=== PATIENT | female | born 1985 | race Caucasian/White ===

== ENCOUNTER → 2022-08-15 11:05 | Outpatient (BNVA) | payer MEDICARE, MEDICAID, SELFPAY | PROVIDERS: PCP Family Medicine; Visit Provider Registered Nurse | DX: Z79.899 Other long term (current) drug therapy (principal) | CPT/HCPCS: 80053; 80061; 82306; 82607; 83036; 83540; 84443; 85025 ==

== ENCOUNTER 2022-09-19 20:00 | Outpatient (CLI) | payer MEDICARE, MEDICAID, SELFPAY ==
[2022-08-23 14:34] VITALS: BP 126/87; BMI 36.7
== END 2022-09-19 20:01 | disposition home or self-care (01) ==
PROVIDERS: PCP Family Medicine; Visit Provider Registered Nurse
DX: G47.10 Hypersomnia, unspecified (principal); G47.33 Obstructive sleep apnea (adult) (pediatric); G47.36 Sleep related hypoventilation in conditions classified elsewhere
CPT/HCPCS: 95810

== ENCOUNTER 2023-04-22 12:36 | Oncology outpatient (recurring) (ONCR) | payer MEDICARE, MEDICAID, SELFPAY ==
[2022-08-23 14:34] VITALS: BP 126/87; BMI 36.7
[2023-04-22 14:09] LABS: Basophils # 0.1 10^3/uL (0.0-0.1); Basophils % 0.9 %; Eosinophils # 0.2 10^3/uL (0.0-0.8); Eosinophils % 2.1 %; Hematocrit 50.7 % (36-47); Lymphocytes # 3.9 10^3/uL (0.8-4.8); Lymphocytes % 34.9 %; Mean Corpuscular HGB Conc 32.9 g/dL (30-55); Mean Corpuscular Hemoglobin 27.4 pg (27-33); Mean Corpuscular Volume 83.3 fl (85-98); Mean Platelet Volume 11.3 fL (7.4-10.4); Monocytes # 0.7 10^3/uL (0.2-0.9); Neutrophils # 6.24 10^3/uL (1.8-7.7); Neutrophils % 55.6 %; Nucleated Red Blood Cells % 0 %; Platelet Count 214 10^3/cmm (157-399); Red Blood Count 6.09 10^6/uL (3.85-5.65); White Blood Count 11.23 10^3/uL (3.29-11.43)
[2023-04-22 14:23] LABS: Erythrocyte Sedimentation Rate 7 mm/hr (0-15); LAB Peripheral Smear Sent for Review
[2023-04-22 14:32] LABS: Alanine Aminotransferase 17 U/L (0-33); Alkaline Phosphatase 108 U/L (35-105); Anion Gap 15.1 (5-19); Aspartate Amino Transferase 15 U/L (0-32); Blood Urea Nitrogen 7 mg/dL (6-20); C Reactive Protein 8.3 mg/L (0.0-4.9); Calcium 9.5 mg/dL (8.5-10.5); Carbon Dioxide 25 mmol/L (22-29); Chloride 102 mmol/L (98-107); Creatinine Clr Calc Pharmacy 193.2788; Ferritin 306 ng/mL (15-150); Globulin 2.7 g/dL (1.3-4.6); Glomerular Filtration Rate 140.4 mL/min (90-130); Glucose 106 mg/dL (65-115); Iron 102 ug/dL (37-145); Osmolality Calculated 284 mOsm/kg (285-295); Percent Saturation 28.6 % (20-50); Potassium 4.1 mmol/L (3.5-5.1); Sodium 138 mmol/L (136-145); Total Bilirubin 0.4 mg/dL (0.15-1.2); Total Iron Binding Capacity 356 mcg/dl; Total Protein 6.7 g/dL (6.6-8.7); Unsaturated Iron Binding 254 ug/dL (112-347)
[2023-04-22 14:46] LABS: Vitamin B12 496 pg/mL (232-1245)
[2023-04-22 14:55] LABS: Lactate Dehydrogenase 132 U/L (135-214)
[2023-04-23 13:55] LABS: Leukemia Profile (BBPL) See Report
[2023-05-03 13:04] LABS: CALR Exon 9 Mutation NOT DETECTED (NOT DETECTED); CSF3R Exon 14/17 Mutation NOT DETECTED (NOT DETECTED); JAK2 Exon 12 Mutation NOT DETECTED (NOT DETECTED); JAK2 V617 Block Specimen ID NG; JAK2 V617 Clinical Indication NG; JAK2 V617 Mutation NOT DETECTED (NOT DETECTED); JAK2 V617 Specimen Source NG; MPL Exon 12 Mutation NOT DETECTED (NOT DETECTED)
== END 2023-04-25 23:59 | disposition home or self-care (01) ==
PROVIDERS: Internal Medicine Medical Oncology; PCP Family Medicine; Visit Provider Family Medicine
DX: D75.1 Secondary polycythemia (principal); R53.83 Other fatigue; R19.7 Diarrhea, unspecified; D72.89 Other specified disorders of white blood cells; E61.1 Iron deficiency; F17.210 Nicotine dependence, cigarettes, uncomplicated; Z79.899 Other long term (current) drug therapy; Z53.9 Procedure and treatment not carried out, unspecified reason
CPT/HCPCS: 36415; 80053; 81270; 81279; 81339; 81479; 82607; 82668; 82728; 83540; 83550; 83615; 85025; 85651; 86140; 86900; 88184; 88185; 99205

== ENCOUNTER → 2023-08-16 09:43 | Outpatient (BNVA) | payer MEDICAID, MEDICARE, SELFPAY ==
[2022-08-23 14:34] VITALS: BP 126/87; BMI 36.7
== END ==
PROVIDERS: PCP Family Medicine; Visit Provider Nurse Practitioner Family
DX: L30.9 Dermatitis, unspecified (principal); L57.8 Other skin changes due to chronic exposure to nonionizing radiation; L81.4 Other melanin hyperpigmentation; L81.0 Postinflammatory hyperpigmentation
CPT/HCPCS: 11104; 99203

== ENCOUNTER 2023-08-19 13:08 | Oncology outpatient (recurring) (ONCR) | payer MEDICARE, MEDICAID, SELFPAY ==
[2022-08-23 14:34] VITALS: BP 126/87; BMI 36.7
[2023-08-19 13:28] LABS: Basophils # 0.1 10^3/uL (0.0-0.1); Basophils % 0.7 %; Eosinophils # 0.2 10^3/uL (0.0-0.8); Eosinophils % 1.2 %; Hematocrit 46.4 % (36-47); Lymphocytes # 3.9 10^3/uL (0.8-4.8); Lymphocytes % 28.1 %; Mean Corpuscular HGB Conc 34.3 g/dL (30-55); Mean Corpuscular Hemoglobin 29.8 pg (27-33); Mean Corpuscular Volume 86.9 fl (85-98); Mean Platelet Volume 11.2 fL (7.4-10.4); Monocytes # 0.7 10^3/uL (0.2-0.9); Monocytes % 4.7 %; Neutrophils % 64.8 %; Nucleated Red Blood Cells % 0 %; Platelet Count 251 10^3/cmm (157-399); Red Blood Count 5.34 10^6/uL (3.85-5.65); Red Cell Distribution Width 14.2 % (12.1-15.1); White Blood Count 13.75 10^3/uL (3.29-11.43)
[2023-08-19 13:48] LABS: Alanine Aminotransferase 11 U/L (0-33); Albumin Level 4.2 g/dL (3.5-5.2); Alkaline Phosphatase 107 U/L (35-105); Anion Gap 15.3 (5-19); Aspartate Amino Transferase 11 U/L (0-32); Blood Urea Nitrogen 8 mg/dL (6-20); Calcium 9.5 mg/dL (8.5-10.5); Carbon Dioxide 23 mmol/L (22-29); Chloride 108 mmol/L (98-107); Ferritin 238 ng/mL (15-150); Glomerular Filtration Rate 140.4 mL/min (90-130); Glucose 113 mg/dL (65-115); Iron 96 ug/dL (37-145); Osmolality Calculated 293 mOsm/kg (285-295); Percent Saturation 27.1 % (20-50); Potassium 4.3 mmol/L (3.5-5.1); Sodium 142 mmol/L (136-145); Total Bilirubin 0.5 mg/dL (0.15-1.2); Total Iron Binding Capacity 354 mcg/dl; Total Protein 7.2 g/dL (6.6-8.7); Unsaturated Iron Binding 258 ug/dL (112-347)
== END 2023-08-25 23:59 | disposition home or self-care (01) ==
PROVIDERS: Internal Medicine Medical Oncology; PCP Family Medicine; Visit Provider Family Medicine
DX: D72.89 Other specified disorders of white blood cells (principal); F17.210 Nicotine dependence, cigarettes, uncomplicated
CPT/HCPCS: 36415; 80053; 82728; 83540; 83550; 85025; 99213

== ENCOUNTER → 2023-08-26 11:16 | Outpatient (BNVA) | payer MEDICARE, MEDICAID, SELFPAY ==
[2022-08-23 14:34] VITALS: BP 126/87; BMI 36.7
== END ==
PROVIDERS: PCP Family Medicine; Visit Provider Nurse Practitioner Family
DX: L02.426 Furuncle of left lower limb (principal); L02.221 Furuncle of abdominal wall; L02.425 Furuncle of right lower limb; D23.61 Other benign neoplasm of skin of right upper limb, including shoulder; Z48.02 Encounter for removal of sutures
CPT/HCPCS: 99213

== ENCOUNTER → 2023-09-05 16:33 | Outpatient (BNVA) | payer MEDICARE, OTHER, SELFPAY ==
[2022-08-23 14:34] VITALS: BP 126/87; BMI 36.7
== END ==
PROVIDERS: PCP Family Medicine; Visit Provider Psychiatry & Neurology Psychiatry
DX: Z79.899 Other long term (current) drug therapy (principal)
CPT/HCPCS: 80061; 83036

== ENCOUNTER → 2023-09-17 14:02 | Outpatient (BNVA) | payer MEDICARE, SELFPAY ==
[2023-09-12 11:56] VITALS: BP 129/88; BMI 33.3
== END ==
PROVIDERS: PCP Family Medicine; Visit Provider Nurse Practitioner Family
DX: L02.32 Furuncle of buttock (principal); L81.0 Postinflammatory hyperpigmentation
CPT/HCPCS: 99214

== ENCOUNTER → 2023-12-26 14:03 | Outpatient (BNVA) | payer MEDICARE, MEDICAID, SELFPAY ==
[2023-09-12 11:56] VITALS: BP 129/88; BMI 33.3
== END ==
PROVIDERS: PCP Family Medicine; Visit Provider Nurse Practitioner Family
DX: L02.32 Furuncle of buttock (principal); L81.0 Postinflammatory hyperpigmentation; D23.61 Other benign neoplasm of skin of right upper limb, including shoulder; L30.9 Dermatitis, unspecified; L57.8 Other skin changes due to chronic exposure to nonionizing radiation; L81.4 Other melanin hyperpigmentation; B07.8 Other viral warts; F17.200 Nicotine dependence, unspecified, uncomplicated
CPT/HCPCS: 11104; 17110; 99213

== ENCOUNTER → 2024-07-16 15:42 | Outpatient (BNVA) | payer MEDICARE, OTHER, SELFPAY ==
[2023-09-12 11:56] VITALS: BP 129/88; BMI 33.3
== END ==
PROVIDERS: PCP Family Medicine; Visit Provider Psychiatry & Neurology Psychiatry
DX: Z79.899 Other long term (current) drug therapy (principal)
CPT/HCPCS: 80053; 80061; 83036; 84443; 85025